=== PATIENT | male | born 1950 | race Caucasian/White ===

== ENCOUNTER 2017-04-21 05:29 | Day surgery (SDC) | payer OTHER ==
--- NOTE | 2017-05-01 08:58 | OR ---
ADMIT: 04/21/2017 RM/LOC: [facility] MR#: [id number] [address] MILLI WOODY [address] [place] [address] Operative/Delivery Room Report SEX: M AGE: 67 : 1950 SURGERY DATE: 04/21/2017 SURGEON: Milli Dickinson MD EQUIPMENT SUPERINTENDENT: ASHUTOSH Shukla. PRE-PROCEDURE DIAGNOSIS: Left inguinal hernia. POSTPROCEDURE DIAGNOSIS: Large indirect left inguinal hernia. PROCEDURE: Laparoscopic TEP left inguinal hernia repair with mesh. INDICATIONS: The patient is an obese 67-year-old who has had a previous open right inguinal hernia who has a symptomatic enlarging left inguinal hernia who presents for laparoscopic repair. FINDINGS: The patient was taken to the operating room. General endotracheal anesthesia was induced. The patient's abdomen was prepped and draped in normal sterile fashion. The case was begun by transverse infraumbilical 3 cm skin incision using #11 blade. Dissection was carried down through subcutaneous fat using S shaped retractors. Anterior abdominal wall fascia to the left side of midline was incised vertically with #11 blade. The rectus muscle was retracted laterally. A preperitoneal balloon was placed in the preperitoneal space and insufflated under direct vision. A camera port was placed. CO2 was insufflated. Two midline 5 mm ports were placed under direct vision. The case begun by identifying Gary's ligament bilaterally. There was no evidence of a hernia on the right. On the left, there was no direct hernia but a large indirect inguinal hernia sac that we carefully peeled off the spermatic cord structures using an atraumatic and a [place] instrument. Clearly and easily, we were able to dissect this hernia sac well off the spermatic cord structures well cephalad. There was also a large cord lipoma ADMIT: 04/21/2017 RM/LOC: [facility] MR#: [id number] [address] MILLI WOODY [address] [place] [address] Operative/Delivery Room Report SEX: M AGE: 67 : 1950 that were reduced out of the inguinal hernia site. There is little bit of fatty bleeding that we controlled with electrocautery when we removed that lipoma. I placed a preformed 3D medium left-sided polypropylene mesh in the preperitoneal space. We covered the left inguinal floor with medial inferior portion of the mesh overlying Gary's ligament. As we held the lower edge of the mesh, we desufflated the preperitoneal space with our mesh in excellent position. We removed all of our ports. I injected 0.5% Marcaine subdermally and subfascially for postoperative analgesia, closed the umbilical fascial incision with an 0 Vicryl suture and closed the skin sites with interrupted 4- 0 Vicryl subcuticular skin stitches. Wounds were cleaned, dried, and dressed. The patient tolerated the procedure without difficulty. Transferred to the recovery room in good condition. Milli Dickinson MD/ ehsan JOB #: [id number] CC: Milli Dickinson, Attending Physician FAMILY PHYSICIAN, Family Physician
== END 2017-04-21 13:50 | disposition home or self-care (01) ==
LOC: SSS 05:29
PROC: 0YU64JZ Supplement Left Inguinal Region with Synthetic Substitute, Percutaneous Endoscopic Approach (ICD-10-PCS; principal; 2017-04-21)
DX: K40.90 Unilateral inguinal hernia, without obstruction or gangrene, not specified as recurrent (principal); I10 Essential (primary) hypertension; I25.2 Old myocardial infarction; K21.9 Gastro-esophageal reflux disease without esophagitis; Z86.73 Personal history of transient ischemic attack (TIA), and cerebral infarction without residual deficits; E66.9 Obesity, unspecified; Z88.0 Allergy status to penicillin; Z87.442 Personal history of urinary calculi; Z90.49 Acquired absence of other specified parts of digestive tract; Z98.890 Other specified postprocedural states